=== PATIENT | female | born 1955 | race African-American/Black ===

== ENCOUNTER 2017-07-20 10:33 | Inpatient (IN) | payer MEDICARE, MEDICAID ==
[2017-07-08 11:25] LABS: BILIRUBIN, URINE NEGATIVE (NEGATIVE); GLUCOSE, URINE (UA) NEGATIVE (NEGATIVE); KETONES,URINE NEGATIVE (NEGATIVE); LEUKOCYTE ESTERASE ,URINE 1+ (NEGATIVE); NITRITE,URINE NEGATIVE (NEGATIVE); PH,URINE 6 (4.5-8.0); PROTEIN,URINE 2+ (NEGATIVE); UROBILINOGEN,URINE 12 MG/DL (0.0-1.0)
[2017-07-08 11:27] LABS: APPEARANCE,URINE SLIGHTLY CLOUDY; COLOR,URINE YELLOW
[2017-07-08 11:34] LABS: HEMATOCRIT 41.6 % (37.0-47.0); HEMOGLOBIN 13.2 G/DL (12.0-16.0); MEAN CORPUSCULAR VOLUME 86 FL (80-99); PLATELET COUNT 231 K/UL (150-450); RED BLOOD COUNT 4.81 M/UL (4.20-5.40); RED CELL DISTRIBUTION WIDTH 13.7 % (11.6-14.8); WHITE BLOOD COUNT 6.6 K/UL (4.8-10.8)
[2017-07-08 11:47] LABS: ANION GAP 5 mmol/L (5-15); BLOOD UREA NITROGEN 8 mg/dL (7-18); CARBON DIOXIDE 32 MMOL/L (21-32); CHLORIDE 104 MMOL/L (98-107); CREATININE 0.7 MG/DL (0.55-1.30); POTASSIUM 3.3 MMOL/L (3.5-5.1); SODIUM 141 MMOL/L (136-145)
--- NOTE | 2017-07-08 21:17 | Cardiology Report ---
APPROVED REPORT EKG Measurement Heart [id number] Normal sinus rhythm Left axis deviation Pulmonary disease pattern Abnormal ECG
--- NOTE | 2017-07-17 11:50 | Diagnostic Imaging Report ---
Indication: Dyspnea Comparison: None 2 views of the chest obtained. Findings: Cardiomediastinal silhouette and pulmonary vascularity are within normal limits for age. The diaphragmatic contour is smooth and costophrenic angles are sharp. Some mild increased interstitial markings present, nonspecific in nature. No pleural effusions are identified. The bones are unremarkable. Impression: No acute disease Interstitial lung prominence nonspecific
--- NOTE | 2017-07-19 14:45 | Pre-op HX & Phy Repo 2 SIG ---
DATE OF ADMISSION: 07/20/2017 PREOPERATIVE HISTORY AND PHYSICAL DATE SCHEDULED FOR OUTPATIENT SURGERY: 07/20/2017 HISTORY OF PRESENT ILLNESS: The patient is a 61-year-old -[place] female in stable health with invasive ductal carcinoma of the left breast. The patient underwent routine mammography and ultrasound in February 2017 which revealed 2 suspicious lesions of the left breast and an enlarged axillary lymph node. Core biopsy x3 was performed. The axillary lymph node was unremarkable without malignancy. A mammographic left breast mass at 10 o'clock revealed no evidence of malignancy and a portion of a duct cyst wall. The lesion at the left breast seen on mammogram at 5 o'clock core biopsy revealed invasive ductal carcinoma, moderately differentiated. The patient was seen by Oncology. She was estrogen receptor positive, progesterone receptor negative, HER2 equivocal. Repeat ultrasound-guided biopsy of the left axillary lymph node again showed no evidence of malignancy and the oncologist felt there was no indication for preoperative neoadjuvant chemotherapy. The patient is scheduled to undergo left breast partial mastectomy with preoperative needle localization with ultrasound and left axillary lymph node biopsy. MEDICATIONS: Amlodipine 10 mg, atorvastatin 40 mg, albuterol sulfate 2.5mg/3ml for asthma, Neurontin 600 mg, Vicodin 7.5/325, chlorthalidone 25 mg, metformin 500 mg, paroxetine 20 mg, Odefsey 200-25-25 as a prophylactic antiviral HIV medication for prophylaxis. She is being treated for hypertension, diabetes, and asthma. PHYSICAL EXAMINATION: GENERAL: The patient is 5 feet 2 inches, 171 pounds. HEENT: Within normal limits. LUNGS: Clear. HEART: Regular rhythm. BREASTS: The breasts are large and ptotic. There was no palpable abnormality in either breast and no palpable axillary or supraclavicular lymphadenopathy on either side. ABDOMEN: Soft. Pelvic and rectal: per pipe welder. EXTREMITIES: Without edema. NEUROLOGIC: Physiologic. IMPRESSION: Invasive ductal carcinoma, moderately differentiated left breast with mammographic mass at 5 o'clock. PLAN: I have had a full discussion with the patient regarding the nature of the surgery, indications, alternatives, options, and risks including bleeding, infection, need for additional procedures depending on the final pathology report, scarring, distortion of the breast shape, size, or contour, etc. She has been informed about the need for postoperative radiation therapy and possible chemotherapy. The patient understands and agrees to proceed. Victor Manuel Pierson M.D. DR: GREGOR JOB#: [id number] CC: NICOLASA
[2017-07-20] VITALS (11 sets, daily range): BP systolic 127–166; BP diastolic 62–86
[~2017-07-20] VITALS: Ht 157.5 cm; Wt 79.8 kg
[2017-07-20] MEDS ORDERED: ODEFSEY PO (11:21)
[2017-07-20] MEDS ORDERED: METFORMIN HCL500 M1 ORAL (11:21)
[2017-07-20] MEDS ORDERED: PAROXETINE HCL25 MG ORAL (11:21)
[2017-07-20] MEDS ORDERED: NORVASC10 MG ORAL (11:21)
[2017-07-20] MEDS ORDERED: ATORVASTATIN CA40 MG ORAL (11:21)
[2017-07-20] MEDS ORDERED: NEURONTIN600 MG ORAL (11:21)
[2017-07-20] MEDS ORDERED: ALBUTEROL2.5 MG/3 M INH (11:21)
[2017-07-20] MEDS ORDERED: CHLORTHALIDONE25 MG ORAL (11:21)
--- NOTE | 2017-07-20 12:04 | Pre-Procedure Note/Attestation ---
Pre-Procedure Note/Attestation Complete Prior to Procedure Planned Procedure: left Procedure Narrative: left breast partial mastectomy and left axillary lymph node biopsy, excisional biopsy additional left breast lesion Indications for Procedure Pre-Operative Diagnosis: invasive ductal carcinoma left breast inferior 6:00; suspicious left breast lesion 10:00 upper inner quadrant with negative needle biopsy Attestation I attest that I discussed the nature of the procedure; its benefits; risks and complications; and alternatives (and the risks and benefits of such alternatives ), prior to the procedure, with the patient (or the patient's legal sales solutions representative). I attest that, if there was a reasonable possibility of needing a blood transfusion, the patient (or the patient's legal sales solutions representative) was given the [place] [employer] [facility] [employer] [facility] standardized written summary, pursuant to the [place] Blood Safety Act ([place] Health and Safety Code # 1645, as amended). I attest that I re-evaluated the patient just prior to the surgery and that there has been no change in the patient's H&P, except as documented below: none HENRY OCAMPO July 20, 2017 12:04
[2017-07-20] MEDS ORDERED: Bupivacaine 0.5% Inj 30 ml vial INJ ONE (12:28)
[2017-07-20] MEDS ORDERED: Lidocaine 1% 10mg/ml/EPI 0.01mg/ml 50ml INJ ONE (12:28)
[2017-07-20] MEDS ORDERED: EPINEPHrine 1mg/1ml Amp ONE (12:28)
[2017-07-20] MEDS ORDERED: fentaNYL 100 mcg/2 mL IV ONE (12:53)
[2017-07-20] MEDS ORDERED: Midazolam 2mg/2ml Inj ONE (12:53)
[2017-07-20] MEDS ORDERED: Ketorolac 30mg Inj ONE (13:00)
[2017-07-20] MEDS ORDERED: NS Irrig 1000ml ONE (13:00)
[2017-07-20] MEDS ORDERED: LR 1000ml ONE (13:00)
[2017-07-20] MEDS ORDERED: Sterile Water Irrig 1000ml IRRIG ONE (13:00)
[2017-07-20] MEDS ORDERED: Propofol 200mg/20ml IV ONE (13:00)
[2017-07-20] MEDS ORDERED: LR 1000ml 1,000 ML IVLG SCH (13:43)
--- NOTE | 2017-07-20 13:43 | Anethesia Preoperative Eval ---
Anesthesia Pre-op PMH/ROS General Date of Evaluation: July 20, 2017 Time of Evaluation: 12:40 Anesthesiologist: Tay ASA Score: ASA 3 Mallampati Score Class I : Soft palate, uvula, fauces, pillars visible Class II: Soft palate, uvula, fauces visible Class III: Soft palate, base of uvula visible Class IV: Only hard plate visible Mallampati Classification: Class II Surgeon: Dangelo Diagnosis: L breast CA Surgical Procedure: L partial mastectomy with axillary l/n disection Anesthesia History: none Social History: smoking - h/o Family History: no anesthesia problems Allergies: Coded Allergies: No Known Allergies (Unverified , 07/20/17) Past Medical History Cardiovascular: Reports: HTN; Denies: CAD, [place], valve dz, arrhythmia, other Pulmonary: Reports: asthma - mild stable on inhalers; Denies: COPD, CAPO, other Gastrointestinal/Genitourinary: Reports: GERD; Denies: CRI, ESRD, other Neurologic/Psychiatric: Reports: depression/anxiety, other - chronicpain; Denies: dementia, CVA, TIA Endocrine: Reports: DM - stable on pills; Denies: hypothyroidism, steroids, other HEENT: Denies: cataract (L), cataract (R), glaucoma, OHKAY OWINGEH (L), OHKAY OWINGEH (R), other Hematology/Immune: Denies: anemia, DVT, bleeding disorder, other Musculoskeletal/Integumentary: Denies: OA, RA, DJD, DDD, edema, other Other: obesity PMH Narrative: as above PSxH Narrative: dental Sx. Anesthesia Pre-op Phys. Exam Physician Exam Last Vital Signs Date Time Temp Pulse Resp B/P (MAP) Pulse Ox O2 Delivery O2 Flow Rate FiO2 07/20/17 11:16 97.3 81 20 166/84 97 Room Air 97.3 Constitutional: NAD Neurologic: CN 2-12 intact Cardiovascular: RRR Respiratory: CTA Gastrointestinal: other - obesity Airway Exam Mallampati Score: Class II MO: full Neck: stiff ROM: limited Teeth: missing Dentures: no upper, no lower Anesthesia Pre-op A/P Labs see chart Studies Pre-op Studies: EKG - NSR Risk Assessment & Plan Assessment: ASA 3 Plan: GA with LMA Status Change Before Surgery: No Pre-Antibiotics Drug: Ancef 1gr. Given Within 1 Hr of Incision: Yes Time Given: 13:22 DAMI RAMEY M.D. July 20, 2017 13:43
[2017-07-20] MEDS ORDERED: DiphenhydrAMINE 50mg/ml Inj IVP PRN ×2 (13:45→20:00)
[2017-07-20] MEDS ORDERED: Meperidine 50mg/ml Inj(FOR RIGORS ONLY) IV PRN ×2 (13:45)
[2017-07-20] MEDS ORDERED: Ketorolac 30mg Inj IV PRN (13:45)
[2017-07-20] MEDS ORDERED: Midazolam 2mg/2ml Inj IVP PRN (13:45)
[2017-07-20] MEDS ORDERED: Norco 5mg/325mg tab ORAL PRN (15:30)
--- NOTE | 2017-07-20 15:36 | Brief Operative Note ---
Immediate Post Operative Note Operative Note Pre-op Diagnosis: invasive ductal carcinoma left breast inferior 6:00; suspicious left breast lesion 10:00 upper inner quadrant with negative needle biopsy Procedure: excisional biopsy left breast lesion 10:00 upper inner quadrant with pre-op needle localization left breast partial mastectomy for carcinoma 6:00 inferior breast with pre-op needle localization left axillary lymph node biopsy Post-op Diagnosis: carcinoma left breast and suspicious lesion left breast Post-op Diagnosis: same as pre-op Findings: consistent w/pre-op dx studies Surgeon: emma Anesthesiologist: theresa Anesthesia: general Specimen: yes - left breast x 2; axillary nodes Complications: none Condition: stable Fluids: see anesthesia record Estimated Blood Loss: minimal Drains: LELO Implant(s) used?: HENRY Mays July 20, 2017 15:36
--- NOTE | 2017-07-20 17:00 | Operative Note - Dictated ---
DATE OF OPERATION: 07/20/2017 SURGEON: Victor Manuel Pierson M.D. BEEF TRIMMER: None. ANESTHESIOLOGIST: Dr. Bora Cross. TYPE OF ANESTHESIA: General. PREOPERATIVE DIAGNOSES: 1. Invasive ductal carcinoma, moderately differentiated, left breast mammographic mass at 5 o'clock, inferior. 2. Suspicious left breast mammographic mass, upper inner quadrant at 10 o'clock with negative core biopsy revealing only duct cyst wall. POSTOPERATIVE DIAGNOSES: 1. Invasive ductal carcinoma, moderately differentiated, left breast mammographic mass at 5 o'clock, inferior. 2. Suspicious left breast mammographic mass, upper inner quadrant at 10 o'clock with negative core biopsy revealing only duct cyst wall. OPERATION PERFORMED: 1. Excisional biopsy, suspicious right breast mammographic lesion at 10 o'clock, upper outer quadrant. 2. Left breast partial mastectomy for ductal carcinoma at 6 o'clock, inferior with left axillary lymph node biopsy. DESCRIPTION OF PROCEDURE: The patient was taken to the operating room and under general anesthesia with sequential compression device stockings in place and having received intravenous antibiotics, she was prepped and draped in usual fashion. Attention was first directed to the upper inner quadrant lesion at 10 o'clock near the periphery medially. A radial incision was made achieving hemostasis with cautery. Flaps were appropriately dissected. The wire localization, the wire was brought through and the appropriate section of breast tissue resected. Hemostasis was achieved with cautery. The specimen was oriented with suture markers anterior, superior, and medial. The specimen was given to the pathologist who stated that the suspicious lesion was within the tissue removed and the margins were clear. After ascertaining that hemostasis was secured, the incision was closed with interrupted inverted 2-0 Vicryl deep dermal subcutaneous sutures followed by 4-0 Monocryl subcuticular continuous suture. Attention was then directed to the known carcinoma in the inferior left breast. After changing gloves and instrumentation, a vertical incision was made from areola border to the periphery of the breast and flaps dissected. The wire from needle localization was brought into the field. The appropriate sector of tissue was removed and then it appeared that the wire was present at the lesion at the posterior margin. Additional posterior tissue down to the chest wall was taken and again the specimens were oriented for the pathologist. Pathologist then examined the tissue and found that the mammographic mass was within the tissue removed. The field was irrigated and hemostasis was secured with cautery. The incision was closed with interrupted 2-0 Vicryl. Deep dermal subcutaneous sutures and 4 Monocryl subcuticular suture. Attention was then directed to the left axilla where a curvilinear left axillary incision was made achieving hemostasis with cautery and 3-0 Vicryl ties as appropriate. The clavipectoral fascia was incised. There were several enlarged lymph glands readily evident and these were resected together en bloc using cautery and medium Hemoclips for hemostasis. The specimen was given to the pathologist. The field was irrigated and hemostasis was secured. Through a separate stab incision inferiorly, a 19 mm round Chilo drain was placed into the axilla and sutured to the skin with 2-0 nylon suture. The axillary incision was closed in layers with interrupted 2-0 and 3-0 Vicryl and skin closed with continuous 4-0 Monocryl subcuticular suture. Tincture of benzoin and half-inch Steri-Strips were applied to all 3 incisions followed by dry sterile dressings and then a surgical brassiere applied. Final sponge and needle counts were correct. The patient tolerated the procedure well and left the operating room in good condition. Victor Manuel Pierson M.D. DR: Chet JOB#: [id number] CC:
[2017-07-20] MEDS: D5 1/2NS w/KCl 20mEq 1,000 ML IV SCH (17:34)
[2017-07-20] MEDS ORDERED: metFORMIN 500mg tab ORAL SCH (18:30)
[2017-07-20] MEDS ORDERED: Albuterol ud Inhalation HHN PRN (18:30)
[2017-07-21 00:27] VITALS: BP 129/75
[2017-07-21 04:00] VITALS: BP 136/75
[2017-07-21] MEDS: D5 1/2NS w/KCl 20mEq 1,000 ML IV SCH (06:19)
[2017-07-21 08:00] VITALS: BP 158/86
[2017-07-21 08:42] VITALS: BP 158/86
[2017-07-21] MEDS ORDERED: metFORMIN 500mg tab ORAL SCH (09:00)
[2017-07-21 09:03] VITALS: BP 123/72
--- NOTE | 2017-07-21 09:03 | General Progress Note ---
Progress Note Progress Note AVSS Feeling well with no pain this AM - required parenteral Dilaudid last evening Breast incisions both clean with intact steristrips. Axilla incision clean with intact steristrips. LELO (Chilo) drain - 15ml overnight Imp. Doing well Plan: discharge to continue to wear surgical bra, change dressing prn, and care for drain recording outputs resume all pre-admission home meds to take Tylenol or ibuprofen prn pain advised re activity/limitations f/u office/Clinic 07/27 to remove drain, obtain pathology reports - to call HENRY John July 21, 2017 09:03
--- NOTE | 2017-07-21 09:03 | Immediate Post-Op Evaluation ---
Immediate Post-Op Evalulation Immediate Post-Op Evalulation Procedure: L breast partial mastectomy with exploration of axillary L/N Date of Evaluation: July 20, 2017 Time of Evaluation: 15:45 IV Fluids: 1000 Blood Products: none Estimated Blood Loss: 50 Urinary Output: none Blood Pressure Systolic: 123 Blood Pressure Diastolic: 72 Pulse Rate: 74 Respiratory Rate: 20 O2 Sat by Pulse Oximetry: 99 Temperature (Fahrenheit): 97.8 Pain Score (1-10): 2 Nausea: No Vomiting: No Complications none Patient Status: reacts, patent, none Hydration Status: adequate DAMI RAMEY M.D. July 21, 2017 09:03
--- NOTE | 2017-07-22 18:15 | Discharge Summary ---
Discharge Summary Hospital Course Date of Admission July 20, 2017 at 16:16 Date of Discharge July 21, 2017 at 10:15 Admitting Diagnosis HPI The patient is a 61-year-old -[place] female in stable health with invasive ductal carcinoma of the left breast. The patient underwent routine mammography and ultrasound in February 2017 which revealed 2 suspicious lesions of the left breast and an enlarged axillary lymph node. Core biopsy x3 was performed. The axillary lymph node was unremarkable without malignancy. A mammographic left breast mass at 10 o'clock revealed no evidence of malignancy and a portion of a duct cyst wall. The lesion at the left breast seen on mammogram at 5 o'clock core biopsy revealed invasive ductal carcinoma, moderately differentiated. The patient was seen by Oncology. She was estrogen receptor positive, progesterone receptor negative, HER2 equivocal. Repeat ultrasound-guided biopsy of the left axillary lymph node again showed no evidence of malignancy and the oncologist felt there was no indication for preoperative neoadjuvant chemotherapy. Procedures OPERATION PERFORMED: 1. Excisional biopsy, suspicious right breast mammographic lesion at 10 o'clock, upper outer quadrant. 2. Left breast partial mastectomy for ductal carcinoma at 6 o'clock, inferior with left axillary lymph node biopsy. Hospital Course The patient underwent left breast partial mastectomy with preoperative needle localization with ultrasound and left axillary lymph node biopsy. On the day of discharge, VSSS, Feeling well with no pain this AM - required parenteral Dilaudid last evening Breast incisions both clean with intact steristrips. Axilla incision clean with intact steristrips. LELO Finn) drain - 15ml overnight Imp. Doing well Plan: discharge to continue to wear surgical bra, change dressing prn, and care for drain recording outputs resume all pre-admission home meds to take Tylenol or ibuprofen prn pain advised re activity/limitations f/u office/Clinic 07/27 to remove drain, obtain pathology reports - to call prn Discharge Discharge Disposition Patient was discharged to Home () Marifer Raimrez NP July 22, 2017 18:15
--- NOTE | 2017-07-23 08:33 | 48 Hour Post Anesthesia Eval ---
Post Anesthesia Evaluation Procedure: L breast partial mastectomy with exploration of axillary L/N Date of Evaluation: July 21, 2017 Airway: patent Nausea: No Vomiting: No Pain Intensity: 2 Hydration Status: adequate Cardiopulmonary Status: at baseline Mental Status/LOC: patient returned to baseline Post-Anesthesia Complications: 0 Follow-up care needed: N/A - further care as per primary team LEONOR CASTANEDA M.D. July 23, 2017 08:33
== END 2017-07-21 10:15 | disposition home or self-care (01) | DRG 581 ==
LOC: SUR 10:33 → 3E 16:16
PROC: 07B60ZX Excision of Left Axillary Lymphatic, Open Approach, Diagnostic (ICD-10-PCS; principal; 2017-07-20 13:00)
PROC: 0HBU0ZZ Excision of Left Breast, Open Approach (ICD-10-PCS; principal; 2017-07-20 13:00)
PROC: 0HBU0ZX Excision of Left Breast, Open Approach, Diagnostic (ICD-10-PCS; principal; 2017-07-20 13:00)
DX: C50.512 Malignant neoplasm of lower-outer quadrant of left female breast (principal); Z17.0 Estrogen receptor positive status [ER+]; N63.22 Unspecified lump in the left breast, upper inner quadrant; I10 Essential (primary) hypertension; E11.9 Type 2 diabetes mellitus without complications; J45.909 Unspecified asthma, uncomplicated
CPT/HCPCS: 36415; 71046; 80048; 81003; 82962; 85007; 85025; 85610; 85730; 93005; 94003; 94150; 94664; 94760; J2250